=== PATIENT | male | born 1940 | race American Indian/Alaskan Native ===

== ENCOUNTER 2020-05-24 11:48 | Emergency (ER) | payer MEDICARE, OTHER ==
[~2020-05-24] VITALS: Ht 175.3 cm; Wt 109.3 kg
[~2020-05-24 11:48] MED LIST: ASPIRIN EC81 MG PO; BENICAR20 MG PO; D-20002000 UNIT PO; LIPITOR10 MG PO; OSTEO BI-FLEX1 EAC2 PO; PRILOSEC40 MG PO
--- OUTSIDE RECORDS SUMMARY | 2020-05-24 11:52 | XMS ---
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 Eliza has no Care Guidelines for this patient. Nito VISIT COUNT (12 MO.) 1 Chapin Argu[facility] TOTAL 2 NOTE: Visits indicate total known visits. ED/C VISIT TRACKING (12 MO.) 05/24/2020 11:49 [facility] [place] TYPE: Emergency COMPLAINT: - L LEFT LEG PAIN 04/30/2020 23:55 [facility] [place] TYPE: Emergency DIAGNOSES: - Pneumonia, unspecified organism - Pain in right arm - Disorder of kidney and ureter, unspecified - Acute respiratory failure with hypoxia - Chronic kidney disease, unspecified - post op back pain - Bronchitis, not specified as acute or chronic - Arm Pain INPATIENT VISIT TRACKING (12 MO.) 04/30/2020 23:55 [facility] TYPE: Internal Medicine DIAGNOSES: - Disorder of kidney and ureter, unspecified - Chronic kidney disease, unspecified - Pneumonia, unspecified organism - Bronchitis, not specified as acute or chronic - Pain in right arm - Acute respiratory failure with hypoxia [email or web address]
[2020-05-24] MEDS ORDERED: OXYCODONE HCL5 MG PO (12:13)
[2020-05-24] MEDS ORDERED: PREDNISONE20 MG PO ×2 (13:56→13:58)
== END 2020-05-24 14:18 | disposition home or self-care (01) ==
LOC: ED 11:48
DX: M54.32 Sciatica, left side (principal); I10 Essential (primary) hypertension; E78.00 Pure hypercholesterolemia, unspecified; Z88.1 Allergy status to other antibiotic agents; Z79.899 Other long term (current) drug therapy
CPT/HCPCS: 99283

== ENCOUNTER 2021-02-27 07:45 | Day surgery (SDC) | payer MEDICARE, OTHER ==
--- NOTE | 2021-02-07 16:05 | NUR ---
DOS: 02/27/21 STEPS: 2 INTO THE HOME WALKER [facility] ON AND CELSA RISER SHOWER IS A WALKING WILL TAKE PT TO HIS PHYSICAL THERAPY AND FOLLOW UP DR APPOINTMENTS PT HAD RAMAN RUEDA COMPLETED ON 01-25-21
[~2021-02-27] VITALS: Ht 175.3 cm; Wt 101.4 kg
[~2021-02-27 07:45] MED LIST changes: +CLOBETASOL 0.0560 G1 TP; +FLONASE ALLERG9.9 ML NAS; +HYDROCODON-ACE1 EA10 PO; +OXYCODONE HCL5 MG PO; +PREDNISONE20 MG PO
[2021-02-27] MEDS ORDERED: XARELTO10 MG PO (11:18)
[2021-02-27] MEDS ORDERED: OXYCODONE HCL5 MG PO (11:18)
[2021-02-27] MEDS ORDERED: ASPIRIN EC325 MG PO (11:18)
--- NOTE | 2021-02-27 11:26 | NUR ---
1100: PT PROVIDED URINAL REQUESTED, 125ML VOID DRAINED. NO FURTHER NEEDS OR REQUESTS VOICED, CALL LIGHT WITHIN REACH
--- NOTE | 2021-02-27 13:14 | NUR ---
02/27/21 1314 Sheets,Gogo 1304 PT ARRIVED TO PACU ON RA, PT WAKES EASILY TO VERBAL STIMULI AND DENIES PAIN AND REPORTS SMALL AMOUNT OF NAUSEA. SPINAL LEVEL L1. PT UNABLE TO MOVE LEGS AND SPINAL EDUCATION GIVEN. VSS.
--- NOTE | 2021-02-27 13:30 | OR ---
[facility] [address] [place], [place] [address] Signed DATE OF OPERATION: 02/27/2021 SURGEON: Carlos Manuel Lopez MD PREOPERATIVE DIAGNOSIS: Degenerative joint disease, right knee, severe. POSTOPERATIVE DIAGNOSIS: Degenerative joint disease, right knee, severe. PROCEDURE PERFORMED: Right total knee arthroplasty. STONEMASON: Analisa Frazeir PA-C. Analisa was present and critical for all portions of procedure. ANESTHESIA: Spinal. BLOOD LOSS: 150 mL. TOURNIQUET TIME: Zero. IMPLANTS: Geoffrey Triathlon size 5, 9 mm polyethylene and a 35 mm patella. BRIEF HISTORY: Richard is an 80-year-old gentleman with progressive worsening of his osteoarthritis. He had undergone nonoperative treatment without substantial relief. Risks and benefits of operative intervention were discussed with him and he elected to proceed. DESCRIPTION OF PROCEDURE: Once consent was obtained, he was taken to the operating room. After adequate anesthesia, he was placed on operating room table. All downside pressure points were well padded. Hip bump was placed and the leg was prepped and draped in a standard sterile fashion. The knee was approached through a standard midline incision, taken through skin and subcutaneous tissue. A subvastus approach was undertaken with a small Electronically Signed By: CARLOS MANUEL LOPEZ MD 02/27/21 1330 PATIENT NAME: RICHARD CAO OPERATIVE REPORT DATE OF : 40 REPORT #: [id number] PHYSICIAN: CARLOS MANUEL LOPEZ MD PCP: CARMITA DAVIS MD REPORT IS CONFIDENTIAL AND NOT TO BE RELEASED WITHOUT AUTHORIZATION [facility] [address] [place], [place] [address] Signed quadriceps snip. The arthrotomy was completed and all bleeders were cauterized. The anterior horn of the lateral meniscus was transected as was the ACL. The MCL was elevated with a sleeve around the posteromedial corner. The fat pad was excised and the knee was flexed. The checkpoints were placed in the proximal tibia and the femur and the computer ray was placed in medial femoral condyle inside the incision. The tibial ray was placed one handbreadth below the tibial tuberosity and done percutaneously. The leg was registered with the computer as was the fine anatomic points of the knee. The ligamentous balance was then assessed and slightly. Once this was completed, the robot was brought in and the straight cuts were made with care taken to protect the patellar tendon and MCL. The angle cuts were then made and all bony surfaces were removed. Any remaining osteophytes were removed. The trials were then positioned and the knee taken through range of motion and found to be good. He had range of motion from 0-130 degrees. The patella was cut sized and drilled for a 35 mm patella. The distal femur was drilled and the keel punch was used for the tibia. His bone was fairly soft, so we did elect to go with a hybrid prosthesis. The bone was pulse lavaged and packed with dry Ray-Yobani. The cement was mixed and reached proper consistency, it was placed on the tibia and patella and the tibia was impacted into position first and all excess cement was removed. The polyethylene was snapped into position and the femur was impacted. The knee was extended and nicely loaded. The patella was clamped into position, again all excess cement was removed. The cement was allowed to harden. Once it hardened sufficiently, the knee was inspected, any remaining cement was removed. The range of motion was good and the stability was good. The computer rays were removed as were both checkpoints. The On-Q pain pump was placed percutaneously into the adductor canal from the suprapatellar pouch. The arthrotomy was then closed after injecting the periarticular soft tissue with 100 mL ropivacaine Toradol mixture. The arthrotomy was then closed using #2 Stratafix, subcutaneous tissue with #0 Stratafix, and skin with 3-0 Monocryl and Steri-Strips were then applied. The wound was dressed with an Acticoat dressing and Jesse wrap. He tolerated the procedure well. All sponge, needle, and instrument counts were correct. Carlos Manuel Lopez MD BA/MODL /[id number] Electronically Signed By: CARLOS MANUEL LOPEZ MD 02/27/21 1330 PATIENT NAME: RICHARD CAO OPERATIVE REPORT DATE OF : 40 REPORT #: [id number] PHYSICIAN: CARLOS MANUEL LOPEZ MD PCP: CARMITA DAVIS MD REPORT IS CONFIDENTIAL AND NOT TO BE RELEASED WITHOUT AUTHORIZATION [address] [address] Signed Copies: ~ Electronically Signed By: CARLOS MANUEL LOPEZ MD 02/27/21 1330 PATIENT NAME: RICHARD CAO ASHLEY OPERATIVE REPORT DATE OF : 40 REPORT #: [id number] PHYSICIAN: CARLOS MANUEL LOPEZ MD PCP: CARMITA DAVIS MD REPORT IS CONFIDENTIAL AND NOT TO BE RELEASED WITHOUT AUTHORIZATION
--- NOTE | 2021-02-27 13:56 | NUR ---
1340: PT ARRIVES TO UNIT FROM PACU. ALERT AND ORIENTED, VSS, RESP EVEN AND UNLABORED. DENIES PAIN AND NAUSEA. DRESSING C/D/I, CMS WNL. CRYO CUFF, SCDS AND CORY HOSE IN PLACE. MIQUEL SIPS OF WATER WELL. FRIEND ATTENTIVE AT THE BEDSIDE. NO NEEDS VOICED, CALL LIGHT WITHIN REACH
--- NOTE | 2021-02-27 14:19 | NUR ---
1410: PT WITH REQUEST FOR PAIN RX, ADMINISTERED ORDERED. SEE PT EMARJonathan RODRIGES PROVIDED AT REQUEST. NO FURTHER NEEDS VOICED AT THIS TIME. CALL LIGHT WITHIN REACH
--- NOTE | 2021-02-27 14:52 | NUR ---
1445: PT ALERT AND ORIENTED. REPORTING INCREASING PAIN. PAIN RX ADMINISTERED ORDERED, SEE PT EMAR. VSS, RESP EVEN AND UNLABORED. NO CHANGE TO DRESSING, CMS WNL. SCDS, CRYO CUFF AND CORY HOSE REMAIN IN PLACE. CONTS TO DENY NAUSEA. CALL LIGHT WITHIN REACH
--- NOTE | 2021-02-27 15:02 | NUR ---
PT REPORTS IMPROVED PAIN CONTROL AT THIS TIME. PHYSICAL THERAPIST ARRIVES AT THE BEDSIDE TO WORK WITH PT
--- NOTE | 2021-02-27 15:28 | NUR ---
PT AMBULATES TO BR WITH PHYSICAL THERAPIST AND THIS RN STANDBY ASSIST. STEADY GAIT. SUCCESSFUL FIRST POST OP VOID. TO W/C AND WHEELED TO SURGICAL FLOOR FOR THERAPY SESSION. RESP EVEN AND UNLABORED, VSS. NO PHYSICAL S/S OF DISTRESS AT THIS TIME
--- NOTE | 2021-02-27 16:06 | NUR ---
1550: PT RETURNS FROM PHYSICAL THERAPY SESSION AND IS CLEARED FOR D/C. TC PLACED TO MD LESLY AND D/C ORDER RECEIVED.
--- NOTE | 2021-02-27 16:30 | NUR ---
1610: SECOND DOSE OF ANCEF ADMINISTERED PER VERBAL ORDER FROM MD LESLY. VSS, RESP EVEN AND UNLABORED. PAIN TOLERABLE PER PT. DRESSING REMAINS C/D/I, CMS WNL. SL D/C'D WITH CATH TIP INTACT AND PRESSURE APPLIED TO SITE. WNL. D/C INSTRUCTIONS PROVIDED AND DISCUSSED ORDERED. PT VOICES UNDERSTANDING AND DENIES QUESTIONS OR CONCERNS AT THIS TIME 1620: WHEELED OFF OF UNIT IN W/C BY THIS RN. TRANSFERS INTO VEHICLE INDEPENDENTLY AND APPROPRIATELY. RESP EVEN AND UNLABORED. NO PHYSICAL S/S OF DISTRESS AT THIS TIME
== END 2021-02-27 16:20 | disposition home or self-care (01) ==
LOC: DS 07:45
PROVIDERS: ATTEND Specialist
PROC: 0SRC0JZ Replacement of Right Knee Joint with Synthetic Substitute, Open Approach (ICD-10-PCS; principal; 2021-02-27 11:00)
DX: M17.11 Unilateral primary osteoarthritis, right knee (principal); G89.18 Other acute postprocedural pain; I10 Essential (primary) hypertension; E78.5 Hyperlipidemia, unspecified; K21.9 Gastro-esophageal reflux disease without esophagitis; E66.9 Obesity, unspecified; Z68.35 Body mass index [BMI] 35.0-35.9, adult
CPT/HCPCS: 01402; 64447; 76942; 97110; 97116; 97161; C1713; C1776; J0690; J1100; J1885; J2001; J2250; J2704; J2795; J7121